=== PATIENT | male | born 1990 | race Caucasian/White ===

== ENCOUNTER → 2019-08-31 16:41 | Outpatient (BNVA) | payer OTHER, SELFPAY | PROVIDERS: Family Provider Family Medicine; Visit Provider Nurse Practitioner Family | DX: R05 Cough (principal); J06.9 Acute upper respiratory infection, unspecified; Z20.828 Contact with and (suspected) exposure to other viral communicable diseases; Z68.23 Body mass index [BMI] 23.0-23.9, adult; F17.210 Nicotine dependence, cigarettes, uncomplicated; Z71.89 Other specified counseling | CPT/HCPCS: 87071; 87400; 87635; 87880 ==

== ENCOUNTER 2021-04-30 08:03 | Outpatient (CLI) | payer OTHER, SELFPAY ==
--- NOTE | 2021-04-30 08:45 | US_ITS ---
WS: [id number] ULTRASOUND ABDOMEN LIMITED CLINICAL INFORMATION: K31.89 - Other diseases of stomach and duodenum COMPARISON: None. FINDINGS: Liver Size: Normal. Craniocaudal length: 14.8 cm. Echogenicity: Normal. Surface nodularity: None. Mass (size and location): None. Bile ducts Intrahepatic ducts: Normal. Common bile duct diameter: 0.3 cm. Gallbladder Normal. Gallstones: None. Gallbladder sludge: None. Gallbladder wall thickening: None. Pericholecystic fluid: None. Sonographic Guillory sign: Absent. Pancreas Normal as visualized. Right kidney: Normal. Hydronephrosis: None. Size: 9.6 cm x 5.2 cm x 4.8 cm. Abdominal aorta and IVC Visualized portions are normal. Ascites: None. US/US gall bladder [id number] IMPRESSION: Normal abdominal ultrasound
== END 2021-04-30 08:04 | disposition home or self-care (01) ==
LOC: US 08:04
PROVIDERS: PCP Family Medicine Adult Medicine; Visit Provider Surgery
DX: K31.89 Other diseases of stomach and duodenum (principal)
CPT/HCPCS: 76705

== ENCOUNTER 2022-10-26 10:52 | Emergency (ER) | payer OTHER, SELFPAY ==
[2022-10-26 11:01] VITALS: BP 135/91; PULSE 83; RESP 18; TEMP 36.4; O2SAT 100
[2022-10-26 12:11] VITALS: BP 129/72; PULSE 71; RESP 18; O2SAT 98
--- NOTE | 2022-10-26 12:13 | PC.NURSE ---
Rounded on patient
--- NOTE | 2022-10-26 14:15 | PC.NURSE ---
patient moved to - care taken over by this RN
--- NOTE | 2022-10-26 14:44 | ECG_ITS ---
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 Measurements Intervals [place] Rate: 64 P: 18 [place]: 141 QRS: 52 QRSD: 105 T: 31 QT: 411 QTc: 424 Interpretive Statements SINUS RHYTHM No previous ECG available for comparison Electronically Signed On 10-26-2022 16:50:54 CDT by Naomi Winters M.D. [email or web address]
--- NOTE | 2022-10-26 14:56 | CT_ITS ---
WS: [id number] CT HEAD NONCONTRAST HISTORY: numbness to left arm and leg TECHNIQUE: Contiguous axial imaging performed through the brain in 2.5 mm imaging. Bone and soft tiss ue windows. Sagittal and coronal reformats reviewed. All CT scans at [facility] use at least one of these dose optimization techniques: automated exposure control; mA and/or kV adjustment per pa tient size (includes targeted exams where dose is matched to clinical indication); or iterative recon struction. DLP: 1037.48 mGy.cm COMPARISON: None available. No acute intracranial hemorrhage, midline shift or mass effect. No atrophy or prior infarcts or herniation. Ventricles: Normal size with no hydrocephalus. Paranasal sinuses: As visualized are clear. Mastoid air cells: Well pneumatized. Calvarium and scalp: Skull is intact with no soft tissue edema or swelling. CT/CT head wo con* [id number] IMPRESSION: Negative head CT.
--- NOTE | 2022-10-26 14:58 | ED_ITS ---
HPI - Dizziness General: Chief Complaint: Dizziness Stated Complaint: dizziness, numbness of left side, nausea Time Seen by Provider: 10/26/22 14:28 History of Present Illness: HPI Narrative: Patient is a 32-year-old male comes to the ED with lightheaded/dizziness and left-sided numbness. Patient says symptoms started approximately a week ago. He states that for the past week he has felt episodes of dizziness and lightheadedness that comes and goes throughout the day. He also endorses having some episodes where he has numbness/tingling sensation in his left arm and left leg. Denies any headache or head trauma. Associated symptoms: Denies chest pain, chills, headache(s), nausea, nasal congestion, palpitations or vomiting Associated neuro symptoms: Reports numbness in extremities (Left arm and left leg) Review of Systems Const: Denies: fever(s), chills or fatigue Eyes: Denies: change in vision or eye discomfort ENMT: Denies: throat pain, odynophagia, nasal discharge or nasal congestion Card: Reports: lightheadedness; Denies: chest pain, palpitations, edema, swelling of feet/ankles, dyspnea on exertion or orthopnea Resp: Denies: dyspnea, productive cough or non-productive cough GI: Denies: abdominal pain, nausea, vomiting, diarrhea, constipation or hematochezia : Denies: flank pain, difficulty urinating, dysuria or hematuria Musc: Denies: neck pain, back pain or extremity swelling Skin/Breast: Denies: rash or new lesions Neuro: Reports: numbness in extremities (Left arm and left leg); Denies: headache(s) or weakness in extremities [facility] ED PFSH: Medical History Encounter for wellness examination Nonsurgical dumping syndrome Viral syndrome Surgical History History of oral surgery Family History Other Cancer Social History Alcohol intake: never Substance/Drug Use: never Marital status: Number of children: 2 Current occupational status: employed Physical Exam Const: COMMON NORMALS: patient oriented x3 HENMT: COMMON NORMALS: normocephalic HEAD & SCALP: normocephalic MOUTH: Normal oral and palatal mucosa present THROAT: posterior oropharynx normal and uvula midline Eye: COMMON NORMALS: Equal, round and reactive pupils present and EOMs intact bilaterally GENERAL EYE: appearance normal, both eyes and all related structures PUPIL: Yes Equal, round and reactive pupils present Neck/C-Spine: COMMON NORMALS: supple GENERAL: Yes normal visual inspection Lymph: LYMPHATIC: no lymphadenopathy noted Resp: COMMON NORMALS: normal respiratory effort, No retractions, No use of accessory muscles and clear to auscultation bilaterally AUSCULTATION: clear to auscultation bilaterally Cardio: COMMON NORMALS: regular rate, regular rhythm, S1 normal heart sound present, S2 normal heart sound present, No gallops present (Cardio), No clicks present (Cardio), No murmurs present (Cardio) and Peripheral pulses 2+ throughout RATE: regular rate RHYTHM: regular rhythm HEART SOUNDS: S1 normal heart sound present and S2 normal heart sound present PERIPHERAL PULSES: Peripheral pulses 2+ throughout GI: COMMON NORMALS: Normal to inspection, nondistended, normoactive bowel sounds present, Soft to palpation, non-tender and no masses PALPATION: Yes Soft to palpation : COMMON NORMALS: Yes no CVA tenderness BLADDER/KIDNEY EXAM: Yes no CVA tenderness Back/Pelvis: COMMON NORMALS: no CVA tenderness Extremity: GENERAL: Yes normal exam except as noted Neuro: COMMON NORMALS: patient oriented x3, CN's II-XII intact bilaterally, moves all extremities, no focal motor deficits and no sensory deficits noted COORDINATION/BALANCE: [id number] test normal SPEECH: speech normal SENSORY EXAM: Yes extremities (intact) MOTOR EXAM: 5/5 motor strength present throughout COORDINATION: [id number] test normal Skin: COMMON NORMALS: no rashes or lesions noted GENERAL SKIN EXAM: no rashes or lesions noted and dry skin Course Vital Signs: Vital signs: Vital Signs Temperature 98.2 F 10/26/22 16:13 Pulse Rate 66 10/26/22 16:13 Respiratory Rate 16 10/26/22 16:13 Blood Pressure 118/78 10/26/22 16:13 Pulse Oximetry 98 10/26/22 16:13 Oxygen Delivery Me thod Room Air 10/26/22 11:01 MDM - Dizziness Medical Decision Making Patient is a 32-year-old male comes to the ED with lightheaded/dizziness and left-sided numbness. Patient says symptoms started approximately a week ago. He states that for the past week he has felt episodes of dizziness and lightheadedness that comes and goes throughout the day. He also endorses having some episodes where he has numbness/tingling sensation in his left arm and left leg. Denies any headache or head trauma. Vital stable. Patient appears nontoxic and in no acute distress or pain. Neuro exam shows no deficits. Labs are all unremarkable. CT of head shows no acute findings. EKG shows normal sinus rhythm, [address] segment elevation or depression seen. Patient was stable for discharge home diagnosed with intermittent lightheadedness and numbness and tingling. He was told to follow-up with his PCP within the next week for reevaluation. Return to ED precautions given. Patient understood and agreed with plan. Lab Data I reviewed the patient's lab results. 10/26/22 14:55 10/26/22 14:[address] 10/26/22 14:56 IMPRESSION: Negative head CT. Laboratory Results WBC 5.0 10^3/uL (4.0-10.0) 10/26/22 14:55 RBC 4.64 10^6/uL (4.1-5.3) 10/26/22 14:55 Hgb 14.4 g/dL (11.7-16.6) 10/26/22 14:55 Hct 42.5 % (42.0-52.0) 10/26/22 14:55 MCV 91.6 fl (80-94) 10/26/22 14:55 MCH 31.0 pg (28.0-34.0) 10/26/22 14:55 MCHC 33.9 g/dL (30.0-36.0) 10/26/22 14:55 RDW 12.3 % (12.1-15.1) 10/26/22 14:55 Plt Count 286 10^3/cmm (130-400) 10/26/22 14:55 MPV 12.6 fL (7.4-10.4) H 10/26/22 14:55 Neut % (Auto) 65.5 % 10/26/22 14:55 Lymph % (Auto) 25.5 % 10/26/22 14:55 [place] % (Auto) 7.2 % 10/26/22 14:55 Eos % (Auto) 1.4 % 10/26/22 14:55 Baso % (Auto) 0.2 % 10/26/22 14:55 Neut # (Auto) 3.26 10^3/uL (1.8-7.7) 10/26/22 14:55 Lymph # (Auto) 1.3 10^3/uL (0.8-4.8) 10/26/22 14:55 [place] # (Auto) 0.4 10^3/uL (0.2-0.9) 10/26/22 14:55 Eos # (Auto) 0.1 10^3/uL (0.0-0.8) 10/26/22 14:55 Baso # (Auto) 0.0 10^3/uL (0.0-0.1) 10/26/22 14:55 Nucleated RBC % (auto) 0 % 10/26/22 14:55 Nucleated RBCs # 0.0 /100WBC 10/26/22 14:55 Sodium 141 mmol/L (136-145) 10/26/22 14:55 Potassium 3.9 mmol/L (3.5-5.1) 10/26/22 14:55 Chloride 104 mmol/L (98-107) 10/26/22 14:55 Carbon Dioxide 27 mmol/L (22-29) 10/26/22 14:55 Anion Gap 13.9 (5-19) 10/26/22 14:55 BUN 8 mg/dL (6-20) 10/26/22 14:55 Creatinine 0.8 mg/dL (0.7-1.2) 10/26/22 14:55 GFR Calculation 112.0 mL/min (90-130) 10/26/22 14:55 Glucose 85 mg/dL (65-115) 10/26/22 14:55 Calculated Osmolality 290 mOsm/kg (285-295) 10/26/22 14:55 Calcium 9.1 mg/dL (8.5-10.5) 10/26/22 14:55 EKG Data EKG 1: EKG interpretation date: 10/26/22 Interpretation: Normal sinus rhythm, 64 bpm, no ST segment elevation or depression seen. Discharge Plan Discharge Patient Disposition: Home Clinical Impression: Intermittent lightheadedness, Numbness and tingling Condition: Stable Prescriptions: No Action dicyclomine 20 mg tablet 20 mg PO Q4-5H PRN (Reason: abdominal cramping) Qty: 30 5RF calcium polycarbophil [FiberCon] 625 mg tablet 625 mg PO BID Qty: 60 0RF Discharge Orders: Discharge ED (Routine); Ordered 10/26/22 Ordered By: Serge Thomas Referrals: Ede Delvalle MD [Primary Care Provider] - Discharge Diet: Regular Discharge Activity: Increase activity as tolerated Patient Instructions: Paresthesia (ED), Lightheadedness (ED), Numbness and Tingling Activity Restrictions/Additional Instructions: Follow-up with medical provider as directed in the next 7 to 10 days for reevaluation. Return to the ER or your medical provider if condition worsens. Please read and understand discharge instructions. Thank you for choosing [facility] for your healthcare needs today. Please realize this is an emergency room and that we are providing you with a medical screening exam and this may not be complete and all inclusive of all the testing and or work up that you may need to determine your ailment or severity of your illness. It is very important that you follow up as instructed or that you return to the Emergency Department should you have concerns or if your condition changes or worsens in any way. Coding Level of Care Code ED Special Delivery Mail Carrier for Floyd Scott
[2022-10-26 15:19] LABS: Basophils % 0.2 %; Eosinophils # 0.1 10^3/uL (0.0-0.8); Eosinophils % 1.4 %; Hematocrit 42.5 % (42.0-52.0); Hemoglobin 14.4 g/dL (11.7-16.6); Lymphocytes # 1.3 10^3/uL (0.8-4.8); Lymphocytes % 25.5 %; Mean Corpuscular HGB Conc 33.9 g/dL (30.0-36.0); Mean Corpuscular Volume 91.6 fl (80-94); Mean Platelet Volume 12.6 fL (7.4-10.4); Monocytes # 0.4 10^3/uL (0.2-0.9); Monocytes % 7.2 %; Neutrophils # 3.26 10^3/uL (1.8-7.7); Neutrophils % 65.5 %; Nucleated Red Blood Cells % 0 %; Platelet Count 286 10^3/cmm (130-400); Red Blood Count 4.64 10^6/uL (4.1-5.3); Red Cell Distribution Width 12.3 % (12.1-15.1)
[2022-10-26 15:37] LABS: Anion Gap 13.9 (5-19); Blood Urea Nitrogen 8 mg/dL (6-20); Calcium 9.1 mg/dL (8.5-10.5); Carbon Dioxide 27 mmol/L (22-29); Chloride 104 mmol/L (98-107); Glucose 85 mg/dL (65-115); Osmolality Calculated 290 mOsm/kg (285-295); Potassium 3.9 mmol/L (3.5-5.1); Sodium 141 mmol/L (136-145)
[2022-10-26 16:13] VITALS: BP 118/78; PULSE 66; RESP 16; TEMP 36.8; O2SAT 98
== END 2022-10-26 16:15 | disposition home or self-care (01) ==
PROVIDERS: Emergency Provider Physician Assistant; PCP Family Medicine Adult Medicine
DX: R42 Dizziness and giddiness (principal); R20.0 Anesthesia of skin
CPT/HCPCS: 36415; 70450; 80048; 85025; 93005; 99285

== ENCOUNTER → 2023-09-14 20:05 | Outpatient (BNVA) | payer OTHER, SELFPAY | PROVIDERS: PCP Family Medicine Adult Medicine; Visit Provider Family Medicine Adult Medicine | DX: M70.51 Other bursitis of knee, right knee (principal); M71.169 Other infective bursitis, unspecified knee; M71.161 Other infective bursitis, right knee; M76.51 Patellar tendinitis, right knee | CPT/HCPCS: 87070; 87077; 87184 ==

== ENCOUNTER 2023-10-01 16:58 | Outpatient (CLI) | payer OTHER, SELFPAY | END 2023-10-01 16:59 | disposition home or self-care (01) | PROVIDERS: PCP Family Medicine Adult Medicine; Visit Provider Family Medicine Adult Medicine | DX: M71.161 Other infective bursitis, right knee (principal) | CPT/HCPCS: 87070; 87075; 87205 ==

== ENCOUNTER → 2023-10-22 09:11 | Outpatient (BNVA) | payer OTHER, SELFPAY | PROVIDERS: PCP Family Medicine Adult Medicine; Visit Provider Physician Assistant | DX: M70.51 Other bursitis of knee, right knee (principal); M76.51 Patellar tendinitis, right knee | CPT/HCPCS: 73560; 73565 ==

== ENCOUNTER → 2023-11-30 12:56 | Outpatient (CLI) | payer OTHER, SELFPAY ==
--- NOTE | 2023-11-30 13:45 | MR_ITS ---
WS: [id number] MRI RIGHT KNEE HISTORY: patellar instability of right knee COMPARISON: 10/22/2023 Anterior cruciate ligament: No full-thickness tear. There is a very subtle area of increased T2 signa l in the very distal anterior ACL where it conjoins with the anterior cruciate ligament. There is a 7 mm intermediate signal seen best on the coronal proton density sequence in the region of the distal anterior ACL and meniscus. This could potentially be a small bone fragment from the tibial spine. No acute fractures are identified. Posterior cruciate ligament: Intact. Medial collateral ligament: Intact. Posterior lateral corner structures: Intact. Medial menisci: Intact. Normal signal, size and shape. Lateral meniscus: Intact. Normal signal, size and shape. Extensor mechanism: Distal quadriceps tendon and patellar tendons are intact. Fluid and soft tissue: No joint effusion. Prepatellar fluid consistent with prepatellar bursitis is i dentified. Bursa extends over a length of 3.5 cm and transversely by 3.3 cm. There are diffuse thin s eptations to the bursa. No additional bursal distention. No Benson's cyst. Osseous and articular structures: Patellofemoral compartment: Normal. Medial compartment: Very subtle intermediate signal within the weightbearing surface of the femoral c ondyle. No tear. Lateral compartment: Normal. MR/MR knee RT wo con* [id number] IMPRESSION: 1. Prepatellar bursitis measures 3.5 x 3.3 cm. 2. Subtle area of abnormal intermediate signal involving the anterior distal A CL where conjoins with the anterior meniscus. There is an adjacent inseparable 7 mm intermediate signal which may be a loose body or osseous fragment. There i s no full-thickness tear or retraction of the ACL. On the sagittal sequence thi s additional signal abnormality may be embedded within the ACL.
== END | disposition home or self-care (01) ==
PROVIDERS: PCP Family Medicine Adult Medicine; Visit Provider Student in an Organized Health Care Education/Training Program
DX: M70.41 Prepatellar bursitis, right knee (principal); M76.51 Patellar tendinitis, right knee; M25.361 Other instability, right knee; R93.7 Abnormal findings on diagnostic imaging of other parts of musculoskeletal system
CPT/HCPCS: 73721